=== PATIENT | male | born 1955 | race Caucasian/White ===

== ENCOUNTER 2018-08-02 08:10 | Day surgery (SDC) | payer OTHER ==
[2018-08-02] MEDS ORDERED: LIDOCAINE 4% SOLUTION 50 ML BTL (08:54)
[2018-08-02] MEDS ORDERED: FENTAnyl 50 MCG/ML VIAL (10:47)
[2018-08-02] MEDS ORDERED: MIDAZOLAM 1 MG/ML 2 ML INJ ×2 (10:47)
== END 2018-08-03 09:53 | disposition home or self-care (01) ==
LOC: GIL 08:10
DX: R19.5 Other fecal abnormalities (principal); K29.50 Unspecified chronic gastritis without bleeding; K62.1 Rectal polyp; K64.8 Other hemorrhoids; K64.4 Residual hemorrhoidal skin tags; K21.0 Gastro-esophageal reflux disease with esophagitis
CPT/HCPCS: 43239; 88305; 88312